=== PATIENT | female | born 1950 | race Caucasian/White ===

== ENCOUNTER 2019-12-21 17:21 | Emergency (ER) | payer OTHER, MEDICAID ==
[~2019-12-21] VITALS: Ht 152.4 cm; Wt 49.1 kg
[2019-12-21 17:26] VITALS: Ht 152.4 cm; Wt 49.1 kg
[2019-12-21] MEDS ORDERED: KLONOPIN1 MG PO (17:36)
[2019-12-21] MEDS ORDERED: SPIRIVA RESPIMAT4 G1 INH (17:37)
[2019-12-21] MEDS ORDERED: TYLENOL #4 W/CO1 TAB PO (17:38)
[2019-12-21] MEDS ORDERED: LISINOPRIL10 MG PO (17:39)
[2019-12-21] MEDS ORDERED: LIPITOR10 MG PO (17:39)
[2019-12-21] MEDS ORDERED: DALIRESP250 MCG PO (17:40)
[2019-12-21 18:13] LABS: BASOPHILS 0.2 % (0-2); EOSINOPHILS 1.7 % (0-7); HEMATOCRIT 37.6 % (36.0-48.0); HEMOGLOBIN 11.7 g/dL (12-16); IMMATURE GRANULOCYTES 0.2 % (0-5); LYMPHOCYTES 15.1 % (15-50); MCH 29.9 pg (26.0-34.0); MCHC 31.1 g/dL (31.0-37.0); MCV 96.2 fL (80.0-100.0); MEAN PLATELET VOLUME 9.8 fL (7.4-10.4); MONOCYTES 5.8 % (2-11); PLATELET COUNT 340 10x3/uL (130-400); RBC 3.91 10x6/uL (4.00-5.40); RDW 14.3 % (11.5-14.5)
[2019-12-21 18:23] LABS: APTT 35.7 SECONDS (22.8-39.4); CALC OSMOLALITY 272 mosm/kg (275-300); CALCIUM 10.6 mg/dL (8.5-10.1); CARBON DIOXIDE 32.7 mmol/L (21.0-32.0); CHLORIDE - SERUM 100 mmol/L (98-107); CREATININE - SERUM 1.1 mg/dL (0.6-1.3); GLUCOSE 97 mg/dL (74-106); SODIUM 136 mmol/L (136-145); UREA NITROGEN 15 mg/dL (7-18); eGFR NON AFRICAN AMERICAN 52 mL/min (90-120)
[2019-12-21 18:27] LABS: INR 0.96 (0.85-1.17); PROTIME 12.8 SECONDS (11.6-15.0)
[2019-12-21 18:40] LABS: ALBUMIN 3.8 g/dL (3.4-5.0); ALKALINE PHOSPHATASE 150 U/L (30-120); ALT (SGPT) 22 U/L (10-68); BILIRUBIN - TOTAL 0.23 mg/dL (0.2-1.3); CKMB 8.8 U/L (0.0-3.6); CREATINE KINASE 246 UL (21-215); PRO BNP 331 pg/mL (0-125); PROTEIN - SERUM 7.1 g/dL (6.4-8.2); TROPONIN-I < 0.017 ng/mL (0.000-0.060)
[2019-12-21] MEDS ORDERED: CLEOCIN HCL300 MG PO (18:50)
[2019-12-21 20:20] VITALS: BP 105/53
== END 2019-12-21 20:20 | disposition home or self-care (01) ==
LOC: D.ER 17:21
PROVIDERS: Family Medicine
DX: R09.02 Hypoxemia (principal); R68.84 Jaw pain; S02.609A Fracture of mandible, unspecified, initial encounter for closed fracture; S02.85XA Fracture of orbit, unspecified, initial encounter for closed fracture; W19.XXXA Unspecified fall, initial encounter; Y93.9 Activity, unspecified; Y92.9 Unspecified place or not applicable; Z99.81 Dependence on supplemental oxygen; J44.9 Chronic obstructive pulmonary disease, unspecified; I10 Essential (primary) hypertension